=== PATIENT | female | born 2000 | race Caucasian/White ===

== ENCOUNTER 2023-09-30 23:46 | Emergency (ER) | payer SELFPAY ==
[~2023-09-30] VITALS: Ht 152.4 cm; Wt 45.4 kg
[2023-09-30 23:48] VITALS: BP 108/63; PULSE 102; RESP 16; TEMP 98.8; O2SAT 100
[2023-10-01] MEDS ORDERED: AMOX500C25 PO (01:54)
[2023-10-01] MEDS ORDERED: NAPR-1704 PO (01:54)
== END 2023-10-01 02:12 | disposition home or self-care (01) ==
LOC: MED 23:46
DX: H66.91 Otitis media, unspecified, right ear (principal); Z79.899 Other long term (current) drug therapy
CPT/HCPCS: 99283